=== PATIENT | female | born 1950 | race Caucasian/White ===

== ENCOUNTER 2022-03-13 02:40 | Inpatient (IN) | payer OTHER ==
[2022-03-13] MEDS ORDERED: MORPHINE 4 MG/ML SYR ONE ×2 (02:53→03:58)
[2022-03-13] MEDS ORDERED: NA CHLORIDE 0.9% 500 ML ONE (02:53)
[2022-03-13] MEDS ORDERED: ONDANSETRON 4 MG/2 ML VIAL ONE ×2 (02:53→11:18)
--- OUTSIDE RECORDS SUMMARY | 2022-03-13 04:16 | XMS REPORT | Continuity of Care Document ---
:1950 Author Organization [facility] t Address [address] [place] [address] [place] [address] Care Team Providers Name Role Phone QUINTON COOPER Primary Care Physician Unavailable Quinton Cooper Attending Clinician Unavailable Yanely [place] MA Attending Clinician Unavailable Jaclyn RAHMAN, Cruz Das Attending Clinician Sarina Alejandra Attending Clinician Pob, [facility] Main Attending Clinician Unavailable Scott Colbert MD Attending Clinician SCOTT COLBERT Attending Clinician Unavailable Michelle Brunner Attending Clinician Doctor Unassigned, [place] Attending Clinician Unavailable Mikey Jacobs MD Attending Clinician SCOTT COLBERT Admitting Clinician Unavailable Payers Payer Name Policy Type Policy Number Effective Date Expiration Date S ource Problems Condition Condition Condition Status Onset Resolution Last Treating Co mments Source Name Details Category Date Date Treatment Clinician Date Morbid Morbid Disease Active Methodi obesity obesity 08-21 st 00:00: Hospita 00 l Allergies, Adverse Reactions, Alerts Allergy Allergy Status Severity Reaction(s) Onset Inactive Treating Comm ents Source Name Type Date Date Clinician Codeine Propensi Active Rash Methodi ty to 05-19 st adverse 00:00: Hospita reaction 00 l s to drug Penicill Propensi Active Rash Method i ins ty to 05-19 adverse 00:00: Hospita reaction 00 l s to drug CODEINE DRUG Active Low Rash 2018-0 Univers INGREDI 3-26 ity of 00:00: [place] 00 Medical Branch Codeine Propensi Active Rash 2018-0 Univers ty to 3-26 ity of adverse 00:00: [place] reaction 00 Medical s Branch PENICILL Drug Active Rash 2016-02 Univers INS Class 2-21 ity of 00:00: [place] 00 Medical Branch Penicill Propensi Active Rash 2016-02 Univer s ins ty to 2-21 ity of adverse 00:00: [place] reaction 00 [facility] s Branch Family History Family Member Diagnosis Comments Start Date Stop Date Source Maternal grandmother Diabetes [facility] Natural mother [facility] Natural mother Hypertension [facility] Paternal grandfather Cancer [facility] Natural father [facility] Social History Social Habit Start Date Stop Date Quantity Comments Source Exposure to Not sure University SARS-CoV-2 (event) [facility] Sex Assigned At [facility] [place] [facility] History of tobacco Current smoker [facility] use Hospital History SDWI [facility] Std Drinks Hospit al History SDWI [facility] Binge [facility] Alcohol intake 2021-11-08 2021-11-08 Lifetime [facility] 00:00:00 00:00:00 non-drinker Hospital (finding) History SDOH 2019-03-09 2019-03-09 1 [facility] Alcohol Frequency 00:00:00 00:00:00 Hospita l Cigarettes smoked 2018-08-10 2018-08-[address] current (pack per 00:00:00 00:00:00 Hospita l day) - Reported Cigarette 2018-08-10 2018-08-10 [facility] pack-years 00:00:00 00:00:00 Hospital Tobacco use and 2018-08-10 2018-08-10 Smokeless [facility] exposure 00:00:00 00:00:00 tobacco non-user Hospital Smoking Status Start Date Stop Date Source Former smoker 2018-07-15 00:00:00 2018-07-15 00:00:00 [facility] Medications Ordered Filled Start Stop Current Ordering Indication Dosage Frequency Signature Comments Components Source Medication Medication Date Date Medication? Clinician (SIG) Name Name ergocalcife Yes 40186S Q30D Take Meth martha rol -14 50,000 [address] (VITAMIN 11:30: Units by Hospi ta D2) 50,000 45 mouth l unit every 30 capsule (thirty) days. calcium 2020-0 Yes 1{tbl} QD Take 1 Method i carbonate/v 1-[address] itamin D3 11:30: mouth Hospita (CALCIUM 45 daily. l 500 + D ORAL) CYANOCOBALA 2020-0 Yes 1{tbl} QD Take 1 Me thodi MIN, 1-[address] VITAMIN 11:30: mouth Hospita B-12, ORAL 45 daily. l multivit-mi 2020-0 Yes 2{tbl} QD Take 2 Me thodi n/iron/foli 1-[address] c/lutein 11:30: mouth Hospita (CENTRUM 45 daily. l SILVER WOMEN ORAL) diclofenac 2018-0 Yes 75mg Take 1 Unive rs 75 mg EC 8-15 tablet by ity of tablet 00:00: mouth 2 (two) Medical times Branch daily with meals. diclofenac 2018-0 Yes 75mg Take 1 Unive rs 75 mg EC 8-15 tablet by ity of tablet 00:00: mouth 2 (two) Medical times Branch daily with meals. diclofenac 2019-0 Yes 75mg Take 1 Unive rs 75 mg EC 8-15 tablet by ity of tablet 00:00: mouth 2 (two) Medical times Branch daily with meals. diclofenac 2019-0 Yes 75mg Take 1 Unive rs 75 mg EC 8-15 tablet by ity of tablet 00:00: mouth 2 (two) Medical times Branch daily with meals. diclofenac 2018-0 Yes 75mg Take 1 Unive rs 75 mg EC 8-15 tablet by ity of tablet 00:00: mouth 2 (two) Medical times Branch daily with meals. omeprazole 2018-0 Yes [id number] TAKE ONE Methodi (PriLOSEC) 7-[address] 40 MG 00:00: MOUTH Hospita capsule 00 EVERY DAY l 30 MINUTES BEFORE BREAKFAST levothyroxi 2018-0 Yes Take by Uni vers ne sodium 5-22 mouth. ity of (LEVOTHYROX 19:00: [place] INE ORAL) 11 Medical Branch levothyroxi 2018-0 Yes Take by Uni vers ne sodium 5-22 mouth. ity of (LEVOTHYROX 19:00: [place] INE ORAL) 11 Medical Branch levothyroxi 2018- Yes Take by Uni vers ne sodium 5-22 mouth. ity of (LEVOTHYROX 19:00: [place] INE ORAL) 11 Medical Branch levothyroxi Yes Take by Uni vers ne sodium 5-22 mouth. ity of (LEVOTHYROX 19:00: [place] INE ORAL) 11 Medical Branch levothyroxi Yes Take by Uni vers ne sodium 5-22 mouth. ity of (LEVOTHYROX 19:00: [place] INE ORAL) 11 Medical Branch levothyroxi Yes Take by Uni vers ne sodium 5-22 mouth. ity of (LEVOTHYROX 19:00: [place] INE ORAL) 11 Medical Branch ALPRAZolam Yes .25mg Q24H Take 0.25 M ethodi (XANAX) 5-[address] 0.25 MG 00:00: mouth Hospita tablet 00 daily as l needed for anxiety. diclofenac Yes TAKE 1 Unive rs 75 mg EC 3-21 TABLET BY ity of tablet 00:00: MOUTH [place] 00 TWICE A Medical DAY WITH Branch MEALS diclofenac Yes TAKE 1 Unive rs 75 mg EC 3-21 TABLET BY ity of tablet 00:00: MOUTH [place] 00 TWICE A Medical DAY WITH Branch MEALS diclofenac Yes TAKE 1 Unive rs 75 mg EC 3-21 TABLET BY ity of tablet 00:00: MOUTH [place] 00 TWICE A Medical DAY WITH Branch MEALS diclofenac Yes TAKE 1 Unive rs 75 mg EC 3-21 TABLET BY ity of tablet 00:00: MOUTH [place] 00 TWICE A Medical DAY WITH Branch MEALS diclofenac Yes TAKE 1 Unive rs 75 mg EC 3-21 TABLET BY ity of tablet 00:00: MOUTH [place] 00 TWICE A Medical DAY WITH Branch MEALS diclofenac Yes TAKE 1 Unive rs 75 mg EC 3-21 TABLET BY ity of tablet 00:00: MOUTH [place] 00 TWICE A Medical DAY WITH Branch MEALS traMADOL 50 2016-02 Yes TAKE 1 Univ ers mg tablet 2-02 TABLET BY ity o f 00:00: MOUTH 3 [place] 00 TIMES A Medical DAY Branch NEEDED FOR PAIN traMADOL 50 2016-02 Yes TAKE 1 Univ ers mg tablet 2-02 TABLET BY ity o f 00:00: MOUTH 3 [place] 00 TIMES A Medical DAY Branch NEEDED FOR PAIN traMADOL 50 2016-02 Yes TAKE 1 Univ ers mg tablet 2-02 TABLET BY ity o f 00:00: MOUTH 3 [place] 00 TIMES A Medical DAY Branch NEEDED FOR PAIN traMADOL 50 2016-02 Yes TAKE 1 Univ ers mg tablet 2-02 TABLET BY ity o f 00:00: MOUTH 3 TIMES A Medical DAY Branch NEEDED FOR PAIN traMADOL 50 2016-02 Yes TAKE 1 Univ ers mg tablet 2-02 TABLET BY ity o f 00:00: MOUTH 3 TIMES A Medical DAY Branch NEEDED FOR PAIN traMADOL 50 2016-02 Yes TAKE 1 Univ ers mg tablet 2-02 TABLET BY ity o f 00:00: MOUTH 3 TIMES A Medical DAY Branch NEEDED FOR PAIN VITAMIN D2 2016-02 Yes TAKE 1 Unive rs 50,000 unit 1-17 CAPSULE BY it y of capsule 00:00: MOUTH ONCE [place] 00 A WEEK Medical TAKE ONCE Branch A WEEK FOR 4 WEEKS AND THEN TAKE ONCE A MONTH VITAMIN D2 2016-02 Yes TAKE 1 Unive rs 50,000 unit 1-17 CAPSULE BY it y of capsule 00:00: MOUTH ONCE [place] 00 A WEEK Medical TAKE ONCE Branch A WEEK FOR 4 WEEKS AND THEN TAKE ONCE A MONTH VITAMIN D2 2016-02 Yes TAKE 1 Unive rs 50,000 unit 1-17 CAPSULE BY it y of capsule 00:00: MOUTH ONCE [place] 00 A WEEK Medical TAKE ONCE Branch A WEEK FOR 4 WEEKS AND THEN TAKE ONCE A MONTH VITAMIN D2 2016-02 Yes TAKE 1 Unive rs 50,000 unit 1-17 CAPSULE BY it y of capsule 00:00: MOUTH ONCE [place] 00 A WEEK Medical TAKE ONCE Branch A WEEK FOR 4 WEEKS AND THEN TAKE ONCE A MONTH VITAMIN D2 2016-02 Yes TAKE 1 Unive rs 50,000 unit 1-17 CAPSULE BY it y of capsule 00:00: MOUTH ONCE [place] 00 A WEEK Medical TAKE ONCE Branch A WEEK FOR 4 WEEKS AND THEN TAKE ONCE A MONTH VITAMIN D2 2016-02 Yes TAKE 1 Unive rs 50,000 unit 1-17 CAPSULE BY it y of capsule 00:00: M[place]TH ONCE [place] 00 A WEEK Medical TAKE ONCE Branch A WEEK FOR 4 WEEKS AND THEN TAKE ONCE A MONTH hydroCHLORO 2016-02 Yes TAKE 1 Univ ers thiazide 25 1-15 TABLET BY ity of mg tablet 00:00: MOUTH ONCE [place] 00 A DAY TAKE Medical 1 TABLET Branch ONCE A DAY FOR 90 DAYS hydroCHLORO 2016-02 Yes TAKE 1 Univ ers thiazide 25 1-15 TABLET BY ity of mg tablet 00:00: MOUTH ONCE [place] 00 A DAY TAKE Medical 1 TABLET Branch ONCE A DAY FOR 90 DAYS hydroCHLORO 2016-02 Yes TAKE 1 Univ ers thiazide 25 1-15 TABLET BY ity of mg tablet 00:00: MOUTH ONCE [place] 00 A DAY TAKE Medical 1 TABLET Branch ONCE A DAY FOR 90 DAYS hydroCHLORO 2016-02 Yes TAKE 1 Univ ers thiazide 25 1-15 TABLET BY ity of mg tablet 00:00: MOUTH ONCE [place] 00 A DAY TAKE Medical 1 TABLET Branch ONCE A DAY FOR 90 DAYS hydroCHLORO 2016-02 Yes TAKE 1 Univ ers thiazide 25 1-15 TABLET BY ity of mg tablet 00:00: MOUTH ONCE [place] 00 A DAY TAKE Medical 1 TABLET Branch ONCE A DAY FOR 90 DAYS hydroCHLORO 2016-02 Yes TAKE 1 Univ ers thiazide 25 1-15 TABLET BY ity of mg tablet 00:00: MOUTH ONCE [place] 00 A DAY TAKE Medical 1 TABLET Branch ONCE A DAY FOR 90 DAYS losartan 2016-02 Yes 1 TAB(S) Unive rs 100 mg 1-11 ONCE A DAY ity of tablet 00:00: [place]ALLY [place] [facility] losartan 2017 Yes 1 TAB(S) Unive rs 100 mg 1-11 ONCE A DAY ity of tablet 00:00: ORALLY [place] [facility] losartan 2017 Yes 1 TAB(S) Unive rs 100 mg 1-11 ONCE A DAY ity of tablet 00:00: ORALLY [place] [facility] losartan 2017 Yes 1 TAB(S) Unive rs 100 mg 1-11 ONCE A DAY ity of tablet 00:00: [facility] losartan 2017 Yes 1 TAB(S) Unive rs 100 mg 1-11 ONCE A DAY ity of tablet 00:00: ORALLY [place] [facility] losartan 2017 Yes 1 TAB(S) Unive rs 100 mg 1-11 ONCE A DAY ity of tablet 00:00: ORALLY [place] [facility] omeprazole 2016-02 Yes TAKE ONE Uni vers 40 mg 0-24 CAPSULE BY ity of capsule 00:00: MOUTH [place] EVERY DAY Medical 30 MINUTES Branch BEFORE BREAKFAST omeprazole 2016-02 Yes TAKE ONE Uni vers 40 mg 0-24 CAPSULE BY ity of capsule 00:00: MOUTH [place] EVERY DAY Medical 30 MINUTES Branch BEFORE BREAKFAST omeprazole 2016-02 Yes TAKE ONE Uni vers 40 mg 0-24 CAPSULE BY ity of capsule 00:00: MOUTH EVERY DAY Medical 30 MINUTES Branch BEFORE BREAKFAST omeprazole 2016-02 Yes TAKE ONE Uni vers 40 mg 0-24 CAPSULE BY ity of capsule 00:00: MOUTH EVERY DAY Medical 30 MINUTES Branch BEFORE BREAKFAST omeprazole 2016-02 Yes TAKE ONE Uni vers 40 mg 0-24 CAPSULE BY ity of capsule 00:00: MOUTH [place] EVERY DAY Medical 30 MINUTES Branch BEFORE BREAKFAST omeprazole 2016-02 Yes TAKE ONE Uni vers 40 mg 0-24 CAPSULE BY ity of capsule 00:00: MOUTH [place] EVERY DAY Medical 30 MINUTES Branch BEFORE BREAKFAST metformin 2016-02 Yes TAKE 2 Univer s ER 500 mg 0-20 TABLETS BY ity of 24 hr 00:00: MOUTH IN [place] tablet 00 THE Medical MORNING Branch AND 3 TABLETS BY MOUTH AT BEDTIME metformin 2016-02 Yes TAKE 2 Univer s ER 500 mg 0-20 TABLETS BY ity of 24 hr 00:00: MOUTH IN [place] tablet 00 THE Medical MORNING Branch AND 3 TABLETS BY MOUTH AT BEDTIME metformin 2016-02 Yes TAKE 2 Univer s ER 500 mg 0-20 TABLETS BY ity of 24 hr 00:00: MOUTH IN [place] tablet 00 THE Medical MORNING Branch AND 3 TABLETS BY MOUTH AT BEDTIME metformin 2016-02 Yes TAKE 2 Univer s ER 500 mg 0-20 TABLETS BY ity of 24 hr 00:00: MOUTH IN [place] tablet 00 THE Medical MORNING Branch AND 3 TABLETS BY MOUTH AT BEDTIME metformin 2016-02 Yes TAKE 2 Univer s ER 500 mg 0-20 TABLETS BY ity of 24 hr 00:00: MOUTH IN [place] tablet 00 THE Medical MORNING Branch AND 3 TABLETS BY MOUTH AT BEDTIME metformin 2016-02 Yes TAKE 2 Univer s ER 500 mg 0-20 TABLETS BY ity of 24 hr 00:00: MOUTH IN [place] tablet 00 THE Medical MORNING Branch AND 3 TABLETS BY MOUTH AT BEDTIME ARMOUR 2016-02 Yes 60mg Take 60 mg Unive rs THYROID 60 0-13 by mouth ity o f mg tablet 00:00: daily. [place] [facility] WHEELER 2016-02 Yes 60mg Take 60 mg Unive rs THYROID 60 0-13 by mouth ity o f mg tablet 00:00: daily. [place] [facility] WHEELER 2016-02 Yes 60mg Take 60 mg Unive rs THYROID 60 0-13 by mouth ity o f mg tablet 00:00: daily. [facility] 2016-02 Yes 60mg Take 60 mg Unive rs THYROID 60 0-13 by mouth ity o f mg tablet 00:00: daily. [facility] 2016-02 Yes 60mg Take 60 mg Unive rs THYROID 60 0-13 by mouth ity o f mg tablet 00:00: daily. [facility] 2016-02 Yes 60mg Take 60 mg Unive rs THYROID 60 0-13 by mouth ity o f mg tablet 00:00: daily. [facility] amLODIPine 2016-02 Yes TAKE 1/2 Uni vers 10 mg 0-12 TABLET BY ity of tablet 00:00: MOUTH ONCE [facility] amLODIPine 2016-02 Yes TAKE 1/2 Uni vers 10 mg 0-12 TABLET BY ity of tablet 00:00: MOUTH ONCE [facility] amLODIPine 2016-02 Yes TAKE 1/2 Uni vers 10 mg 0-12 TABLET BY ity of tablet 00:00: MOUTH ONCE [facility] amLODIPine 2016-02 Yes TAKE 1/2 Uni vers 10 mg 0-12 TABLET BY ity of tablet 00:00: MOUTH ONCE [facility] amLODIPine 2016-02 Yes TAKE 1/2 Uni vers 10 mg 0-12 TABLET BY ity of tablet 00:00: MOUTH ONCE [facility] amLODIPine 2016-02 Yes TAKE 1/2 Uni vers 10 mg 0-12 TABLET BY ity of tablet 00:00: MOUTH ONCE [facility] Immunizations Ordered Immunization Filled Immunization Date Status Commen ts Source Name Name PFIZER COVID-19 MRNA 2020-04-12 Completed Meth odist VACCINATION 00:00:00 [facility] PFIZER COVID-19 MRNA 2020-03-22 Completed Meth odist VACCINATION 00:00:00 Hospital Influenza, 2017-12-08 Completed [facility] Unspecified 00:00:00 Hospital Vital Signs Vital Name Observation Time Observation Value Comments Source Body height 2021-11-08 15:43:00 152.4 cm [facility] Body weight 2021-11-08 15:43:00 106.142 kg [facility] BMI 2021-11-08 15:43:00 45.70 kg/m2 [facility] Procedures Procedure Date / Time Performing Clinician Source Performed XR KNEE AP STANDING 2021-11-08 16:52:29 Cruz Frost [facility] BILATERAL XR KNEE 1 OR 2 VW RIGHT 2021-11-08 16:43:02 Cruz Frost [facility] XR KNEE 1 OR 2 VW RIGHT 2021-11-08 16:01:15 Cruz Frost [facility] XR KNEE AP STANDING 2021-11-08 16:00:58 Cruz Frost [facility] BILATERAL PROTHROMBIN TIME / INR 2019-07-12 19:51:00 Scott Colbert [facility] ACTIVATED PARTIAL 2019-07-12 19:51:00 Scott Colbert [facility] THRMPLAS [facility] HEPATIC FUNCTION PANEL 2019-07-12 19:51:00 Scott Colbert [facility] ([id number]) [facility],BU/BC,ALT,AST,ALK PHOS) CBC WITH DIFFERENTIAL 2019-07-12 19:51:00 Scott Colbert [facility] US ABDOMEN COMPLETE 2019-07-07 14:27:02 Scott Colbert [facility] PHYSICIAN ORDERS 2019-07-07 05:01:00 Doctor Unassigned, [facility] Name [facility] MEDICATION CORRESPONDENCE 2018-10-30 05:01:00 Doctor Unassigned, [facility] Name [facility] MEDICATION CORRESPONDENCE 2018-09-29 05:01:00 Doctor Unassigned, [facility] Plan of Care Planned Activity Planned Date Details Comments Source Future Scheduled 2022-02-09 Hepatitis C screening [facility] Test 21:04:48 (procedure) [code = 073642839] Future Scheduled 2022-02-09 BREAST CANCER [facility] Test 21:04:48 SCREENING [code = BREAST CANCER SCREENING] Future Scheduled 2022-02-09 COLONOSCOPY SCREENING [facility] Test 21:04:48 [code = COLONOSCOPY SCREENING] Future Scheduled 2022-02-09 SHINGLES VACCINES (2 Met [facility] Test 21:04:48 of 3) [code = SHINGLES VACCINES (2 of 3)] Future Scheduled 2022-02-09 COVID-19 VACCINE (3 - [facility] Test 21:04:48 Booster for Pfizer series) [code = COVID-19 VACCINE (3 - Booster for Pfizer series)] Future Scheduled 2022-02-09 INFLUENZA VACCINE Method [facility] Test 21:04:48 [code = INFLUENZA VACCINE] Encounters Start End Encounter Admission Attending Care Care Encounter Source Date/Time Date/Time Type Type Clinicians Facility Department ID 2022-02-27 Outpatient [facility] Common 14:04:02 0104 [facility] 2021-08-21 Outpatient Allison, [facility] [id number] Common 08:44:05 Vinitha 06 [facility] 2021-06-07 Outpatient [facility] [id number] Common 09:07:03 0414 [facility] 2021-11-19 2021-11-19 Telephone [place], 1.2.840.1 [id number] Methodi 00:00:00 00:00:[address] 3.430.2.7 Hospit a .3.662796 l .8 2021-11-08 2021-11-08 Office Cruz Frost 1.2.840.1 [id number] Methodi 10:50:00 11:12:36 [place].1.[address] 3.430.2.7 Hospit a .3.508263 l .8 2021-11-08 2021-11-08 Outpatient CRUZ FROST [facility] [id number] [place] 00:00:00 00:00:00 912 Method i 2021-11-08 2021-11-08 Outpatient [facility] [id number] [place] 00:00:00 00:00:00 930 Method i 2021-11-08 2021-11-08 Travel 1.2.840.1 1.2.949.351 [id number] Methodi 00:00:00 00:00:[address] 3.430.2.7 0.2.7.3.698 Ho spita .3.501723 084.8 l .8 2021-11-08 2021-11-08 Outpatient FROST, CRUZ [facility] [id number] [place] 00:00:00 00:00:[address] 2021-11-08 2021-11-08 Outpatient FROST, CRUZ [facility] [id number] [place] 00:00:00 00:00:[address] 2021-11-08 2021-11-08 Outpatient FROST, CRUZ [facility] [id number] [place] 00:00:00 00:00:[address] 2021-10-02 2021-10-02 Travel 1.2.840.1 1.2.306.157 [id number] Methodi 00:00:00 00:00:[address] 3.430.2.7 0.2.7.3.698 Ho spita .3.736790 084.8 l .8 2021-04-16 2021-04-16 Telephone Chen, 1.2.840.1 [id number] Methodi 00:00:00 00:00:00 Sar[address] Y[address] 19835.1.[address] 3.430.2.7 Hospit a .3.971561 l .8 2020-05-03 2020-05-03 Outpatient FROST, CRUZ [facility] [id number] [place] 00:00:00 00:00:[address] 2020-05-03 2020-05-03 Outpatient FROST, CRUZ [facility] [id number] [place] 00:00:00 00:00:[address] 2020-05-03 2020-05-03 Outpatient FROST, CRUZ [facility] [id number] [place] 00:00:00 00:00:[address] 2020-04-12 2020-04-12 Outpatient [facility] [id number] [place] 00:00:00 00:00:[address] 2020-03-22 2020-03-22 Outpatient [facility] [id number] [place] 00:00:00 00:00:[address] 2019-07-12 2019-07-12 Music Director Benjamin Muniz [facility] [[email or web address]] 1.2.840.114 [id number] 14:41:18 14:56:18 Visit Lab Main [place] 350.1.13.10 [place] 4.2.7.2.686 Professio [phone] [address] 2019-07-12 2019-07-12 Music Director Cristy, Benjamin Lab Main [facility] [[email or web address]] 1.2.[id number] [facility] 14:41:18 14:56:18 Visit Scott Colbert 350.1.13.10 ity [facility] 4.[place].7.2.[place] [phone] Ar dical [address] 2019-07-12 2019-07-12 [facility] [id number] Univers 09:45:00 09:45:00 [facility] 2019-07-07 2019-07-07 [facility] [id number] Univers 07:58:54 23:59:00 [facility] 2019-07-07 2019-07-07 [facility] 1.2.840.114 [id number] 07:58:00 23:59:00 Encounter Scott Shea 350.1.13.10 [place] 4.2.7.2.686 [place] [id number] [facility] 2019-07-07 2019-07-07 [facility] 1.2.840.114 [id number] Univers 07:58:00 23:59:00 Encounter Scott Shea 350.1.13.10 ity [facility] 4[place]2.7.2.686 [place] [id number] [address] 2019-07-07 2019-07-07 Music Director Cristy, [facility] 1.2.840.114 [id number] 08:06:30 08:21:30 Visit Lab Main [place] 350.1.13.10 [place] 4.2.7.2.686 Professio [id number] [address] 2019-07-07 2019-07-07 Music Director Cristy, Adc Lab Main [facility] [[email or web address]] 1.2.8 40.[id number] [facility] 08:06:30 08:21:30 Visit Michelle Patrick 350.1.13.10 ity [place] 4[place].2.[place] Profess[place] [phone] Ar dical nal 353 [facility] 2018-10-30 2018-10-30 Orders Doctor TORREY 1.2.840.114 [id number] 00:00:00 00:00:00 Only Unassigned, MYCHAL 350.1.13.10 [place] [facility] 4.2.7.2.686 [id number] 2018-10-30 2018-10-30 Orders Doctor TORREY 1.2.840.114 [id number] Univers 00:00:00 00:00:00 Only Unassigned, MYCHAL 350.1.13.10 ity of [place] [facility] 4.2.7.2.686 Fac[place] as [phone] [address] 2018-10-08 2018-10-08 Telephone [facility] 1.2.840.114 [id number] 00:00:00 00:00:00 Mikey L Health 350.1.13.10 Surgical 4.2.7.2.686 Specialti [phone] [address] 2018-10-08 2018-10-08 Telephone [facility] 1.2.840.114 [id number] Univers 00:00:00 00:00:00 Mikey L Health 350.1.13.10 it y of Surgical 4.2.7.2.686 [place] as Specialti [phone] Ar dical es 198 [facility] 2018-09-29 2018-09-29 Orders Doctor HIRSCH 1.2.840.114 [id number] 00:00:00 00:00:00 Only Unassigned, MYCHAL 350.1.13.10 [place] [facility] 4.2.7.2.686 [id number] 2018-09-29 2018-09-29 Orders Doctor HIRSCH 1.2.840.114 [id number] Univers 00:00:00 00:00:00 Only Unassigned, MYCHAL 350.1.13.10 ity of [place] [facility] 4.2.7.2.686 Facundo as [phone] [address] Results Test Description Test Time Test Comments Results Result Comments Source HEPATIC FUNCTION PANEL ([id number]) (ALB,T.PRO,BILI 2019-07-12 21 :01:00 T,BU/BC,ALT,AST,ALK PHOS) Test Item Value Reference Range Interpretation Comme nts TOTAL BILI (test code = 1609887941) 0.5 mg/dL 0.1-1.1 BILI UNCON (test code = 4854966543) 0.6 mg/dL 0.1-1.1 BILI CONJ (test code = 4029202517) 0.0 mg/dL 0-0.3 T PROTEIN (test code = 5959300189) 6.9 g/dL 6.3-8.2 ALBUMIN (test code = 7922159915) 3.8 g/dL 3.5-5 ALK PHOS (test code = 6746303665) 131 U/L 34-122 H ALTv (test code = 1742-6) 23 U/L 5-35 AST(SGOT) (test code = 4839026785) 27 U/L 13-40 Lab Interpretation (test code = 63456-5) [facility] [id number] 20:21:00 Test Item Value Reference Range Interpretation Comments PROTIME PATIENT (test See_Comment [Auto mated message] code = 5964-2) The system wh ich generated this result transmitted ref erence range: 12.0 - 1 4.7 Seconds. The re ference range was not u sed to interpret this result as normal/abnor mal. INR (test code = 6301-6) Nor mal INR <1.1; Warfarin Therap eutic range 2.0 to 3. 0 or 2.5 to 3.5, dep ending upon the indica tions. Lab Interpretation (test Normal code = 39454-3) [facility]:18[facility]00 Test Item Value Reference Range Interpretation Comments APTT Patient (test See_Comment [Automat ed code = 3173-2) message] The system which generated this result transmitted reference range : 23 - 38 Seconds . The reference range was not used to interpr et this result as normal/abnormal . MARION (test code = MARION) The [facility] [[email or web address]] patient population mean normal value for aPTT is 30 seconds. Lab Interpretation Normal (test code = 24747-8) [facility] WITH [id number] 20:17:00 Test Item Value Reference Range Interpretation Comments WBC (test code = See_Comment [Automated 8390-2) message] The sy stem which generated this result transmitted reference range : 4.30 - 11.10 10*3/?L. The reference range was not used to interpret this result as normal/abnormal . RBC (test code = See_Comment [Automated 789-8) message] The sy stem which generated this result transmitted reference range : 3.93 - 5.25 10*6/?L. The reference range was not used to interpret this result as normal/abnormal . HGB (test code = 13.2 g/dL 11.6-15 718-7) HCT (test code = 39.4 % 35.7-45.2 4544-3) MCV (test code = 90.2 fL 80.6-95.5 787-2) MCH (test code = 30.2 pg 25.9-32.8 785-6) MCHC (test code = 33.5 g/dL 31.6-35.1 786-4) RDW-SD (test code = 44.5 fL 39-49.9 26635-5) RDW-CV (test code = 13.4 % 12-15.5 788-0) PLT (test code = See_Comment H [Automated 777-3) message] The sy stem which generated this result transmitted reference range : 166 - 358 10*3/ ?L. The reference r ahsan was not used to interpret this result as normal/abnormal . MPV (test code = 9.3 fL 9.5-12.9 L 67823-2) NRBC/100 WBC (test See_Comment [Automat ed code = 2534189344) message] The system which generated this result transmitted reference range : 0.0 - 10.0 /100 WBCs. The refer ence range was not u sed to interpret th is result as normal/abnormal . NRBC x10^3 (test code <0.01 See_Comment [Auto mated = [id number]) message] The s ystem which generated this result transmitted reference range : 10*3/?L. The reference range was not used to interpret this result as normal/abnormal . GRAN MAT (NEUT) % 72.3 % (test code = 770-8) IMM GRAN % (test code 0.50 % = 1346618196) LYMPH % (test code = 19.0 % 736-9) MONO % (test code = 6.8 % 5905-5) EOS % (test code = 0.8 % 713-8) BASO % (test code = 0.6 % 706-2) GRAN MAT x10^3(ANC) 7.81 10*3/uL 1.88-7.09 H (test code = 4204564632) IMM GRAN x10^3 (test 0.05 10*3/uL 0-0.06 code = 2740366362) LYMPH x10^3 (test code 2.06 10*3/uL 1.32-3.29 = 731-0) MONO x10^3 (test code 0.74 10*3/uL 0.33-0.92 = 742-7) EOS x10^3 (test code = 0.09 10*3/uL 0.03-0.39 711-2) BASO x10^3 (test code 0.07 10*3/uL 0.01-0.07 = 704-7) Lab Interpretation Abnormal (test code = 38100-0) [facility] ABDOMEN [id number] 14:31:07HISTORY: Right upper quadrant pain. Low back pain. TECHNIQUE: Upper abdominal organs were evaluated in multiple planes withthe patient in multiple different positions, without and with colorimaging. FINDINGS: Liver is 15.8 cm, spleen is 10.3 x 2.8 cm, right kidney is 9.9 x4.0 x 5.5 cm and left kidney is 10.9 x 4.6 x 4.0 cm in size. Liverparenchyma appears slightly coarse but without any focal liver le sions. Nofocal lesions are detected in these organs. Cortex of both kidneys rangebetween 12 mm and 14 mm. No hydronephrosis, free fluid in the upper abdomenor aortic aneurysm detected. Visualized portions of the pancreas appearnormal. Hepatic and portal venous system appear patent, with hepatopetalportal flow noted. Gallbladder appears to be moderately distended with no edema or thickeningof the brock. No gallstones detected. However, small amount of biliarysludge and 1 biliary crystal visualized inthe gallbladder lumen. Commonhepatic duct is 6.7 mm. CONCLUSIONS: No gallstones. Mildly hydropic gallbladder with biliary sludgeand one small biliary Crystal visualized. Findings are nonspecific andcould be secondary to chronic acalculous cholecystitis and/ordysfunctioning gallbladder. If the patient's clinical symptoms persist andremain unexplained, nuclear hepatobiliary scan without and with CCKchallenge may be of value. [facility], Radiant Results Inft User - 07/07/2019 9:32 AM CDTHISTORY: Right upper quadrant pain. Low back pain.TECHNIQUE: Upper abdominal organs were evaluated in multiple planes withthe patient in multiple different positions, without and with colorimaging.FINDINGS: Liver is 15.8 cm, spleen is 10.3 x 2.8 cm, right kidney is 9.9 x4.0 x 5.5 cm and left kidney is 10.9 x 4.6 x 4.0 cm in size. Liverparenchyma appears slightly coarse but without any focal liver lesions. Nofocal lesions are detected in these organs. Cortex of both kidneys rangebetween 12 mm and 14 mm. No hydronephrosis,free fluid in the upper abdomenor aortic aneurysm detected. Visualized portions of the pancreas appearnormal. Hepatic and portal venous system appear patent, with hepatopetalportal flow noted.Gallbladder appears to be moderately distended with no edema or thickeningof the brock. No gallstones detected. However, small amount of biliarysludge and 1 biliary crystal visualized in the gallbladder lumen. Commonhepatic duct is 6.7 mm.CONCLUSIONS: No gallstones. Mildly hydropic gallbladder with biliary sludgeand one small biliary Crystal visualized. Findings are nonspecific andcould be secondary to chronicacalculous cholecystitis and/ordysfunctioning gallbladder. If the patient's clinical symptoms persist andremain unexplained, nuclear hepatobiliary scan without and with CCKchallenge may be of value.[facility]
[2022-03-13 05:04] LABS: Absolute Lymphocytes (CBC) 2.6 K/uL (0.7-4.9); Hematocrit 42.5 % (36.0-45.0); Lymphocytes % 24.6 % (15.3-44.8); MCV 88.2 fL (80-100); MPV 7.7 fL (7.6-11.3); RBC Red Blood Cell Count 4.82 M/uL (3.86-4.86)
[2022-03-13 05:10] LABS: Urine Blood Negative (Negative); Urine Glucose Negative (Negative); Urine Protein Negative (Negative)
[2022-03-13 05:11] LABS: Albumin 3.6 g/dL (3.4-5.0); Bilirubin Total 0.4 mg/dL (0.2-1.0); Potassium 3.9 mmol/L (3.5-5.1); Protein, Total 7.1 g/dL (6.4-8.2)
--- NOTE | 2022-03-13 05:36 | EDPHYS ---
Physician Documentation [facility] Name: Megan Wong Age: 71 yrs Sex: Female : 1950 Arrival Date: 03/13/2022 Time: 02:40 Bed 18 Private MD: ED Physician Ronny Mccracken HPI: 03/13 02:44 This Female presents to ER via Unassigned with complaints of abd pain. rn 02:44 The patient presents with abdominal pain. Onset: The symptoms/episode began/occurred 2 rn hour(s) ago. The symptoms do not radiate. Associated signs and symptoms: Pertinent positives: nausea, Pertinent negatives: blood in stools, chest pain, constipation, diarrhea, dysuria, fever. The symptoms are described as achy, crampy, sharp. Modifying factors: The symptoms are alleviated by nothing, the symptoms are aggravated by touching the area. Severity of pain: At its worst the pain was moderate in the emergency department the pain is unchanged. The patient has not experienced similar symptoms in the past. The patient has not recently seen a physician. 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 - Social history:: Smoking status: Patient denies any tobacco usage or history of. - Family history:: not pertinent. - Hospitalizations: : No recent hospitalization is reported. ROS: 02:44 Constitutional: Negative for fever, chills, and weight loss, Eyes: Negative for injury, rn pain, redness, and discharge, Neck: Negative for injury, pain, and swelling, Cardiovascular: Negative for chest pain, palpitations, and edema, Respiratory: Negative for shortness of breath, cough, wheezing, and pleuritic chest pain, Abdomen/GI: + abd pain and nausea Back: Negative for injury and pain, : Negative for injury, bleeding, discharge, and swelling, MS/Extremity: Negative for injury and deformity, Skin: Negative for injury, rash, and discoloration, Neuro: Negative for headache, weakness, numbness, tingling, and seizure. Exam: 02:44 Constitutional: This is a well developed, well nourished patient who is awake, alert, rn appears uncomfortable Head/Face: Normocephalic, atraumatic. Cardiovascular: Regular rate and rhythm. No pulse deficits. Respiratory: No increased work of breathing, no retractions or nasal flaring. Abdomen/GI: Soft, + tender suprapubic and RLQ Skin: Warm, dry with normal turgor. Normal color with no rashes, no lesions, and no evidence of cellulitis. MS/ Extremity: Pulses equal, no cyanosis. Neuro: Awake and alert, GCS 15 Vital Signs: 02:41 BP 142 / 83; Pulse 68; Resp 18; Temp 97.6(O); Pulse Ox 100% on R/A; Weight 102.06 kg ll3 (R); Height 5 ft. 0 in. (152.40 cm) (R); Pain 10/10; 03:50 BP 131 / 48; Pulse 61; Resp 17; Pulse Ox 95% ; Pain 7/10; jj7 04:30 BP 108 / 54; Pulse 62; Resp 20; Pulse Ox 97% ; jj7 05:36 BP 122 / 49; Pulse 65; Resp 18; Pulse Ox 97% ; Pain 2/10; jj7 06:36 BP 116 / 54; Pulse 63; Resp 20; Pulse Ox 98% ; Pain 7/10; jj7 02:41 Body Mass Index 43.94 (102.06 kg, 152.40 cm) ll3 MDM: 02:41 Patient medically screened. rn 05:33 Differential diagnosis: bowel obstruction, non-specific abd pain, urinary tract rn infection, ureterolithiasis, inguinal hernia, incarcerated inguinal hernia, bowel obstruction. Data reviewed: vital signs, nurses notes, lab test result(s), radiologic studies, CT scan, and as a result, I will admit patient. Counseling: I had a detailed discussion with the patient and/or guardian regarding: the historical points, exam findings, and any diagnostic results supporting the discharge/admit diagnosis, lab results, radiology results, the need for further work-up and treatment in the hospital. Response to treatment: the patient's symptoms have mildly improved after treatment, and as a result, I will admit patient. ED course: Pt with moderate sized indirect right inguinal hernia, no evidence of obstruction or perforation. Attempts made to reduce hernia after 2 doses of morphine, unsuccessful. Patient is directly tender over site of hernia. Will admit to hospitalist service for surgical consultation and pain control for possible early incarcerated right inguinal hernia.. 06:35 Management of patient was discussed with the following: Hospitalist: Discussed case and rn need for admission with hospitalist, I was told that they would contact general surgery for consultation. . 03/13 02:42 Order name: CBC with Diff rn 03/13 02:42 Order name: CMP rn 03/13 02:42 Order name: Lipase rn 03/13 02:42 Order name: Urine Microscopic Only rn 03/13 05:28 Order name: CBC with Automated Diff; Complete Time: 05:32 EDMS 03/13 05:28 Order name: Urine Dipstick-Ancillary; Complete Time: 05:32 EDMS 03/13 02:42 Order name: CT Abd/Pelvis - IV Contrast Only rn 03/13 05:28 Order name: Comprehensive Metabolic Panel; Complete Time: 05:32 EDMS 03/13 05:28 Order name: Lipase; Complete Time: 05:32 EDMS 03/13 05:28 Order name: Urine Microscopic Only; Complete Time: 05:59 EDMS 03/13 05:32 Order name: SARS RAPID; Complete Time: 05:59 rn 03/13 02:42 Order name: IV Saline Lock; Complete Time: 02:56 rn 03/13 02:42 Order name: Labs collected and sent; Complete Time: 02:59 rn 03/13 02:42 Order name: Urine Dipstick-Ancillary (obtain specimen); Complete Time: 05:09 rn 03/13 05:13 Order name: NPO; Complete Time: 07:14 rn Administered Medications: 02:55 Drug: Zofran (Ondansetron) 4 mg Route: IVP; Site: right antecubital; jj7 04:01 Follow up: Response: No adverse reaction jj7 02:55 Drug: morphine 4 mg Route: IVP; Infused Over: 4 mins; Site: right antecubital; jj7 03:05 Follow up: Response: Pain is decreased jj7 02:55 Drug: NS 0.9% 500 ml Route: IV; Rate: bolus; Site: right antecubital; jj7 03:37 Follow up: IV Status: Completed infusion j7 04:00 Drug: morphine 4 mg Route: IVP; Infused Over: 4 mins; Site: right antecubital; jj7 06:35 Drug: Dilaudid (HYDROmorphone) 0.5 mg Route: IVP; Site: right antecubital; jj7 07:11 Follow up: Response: No adverse reaction; Pain is decreased; RASS: Alert and Calm (0) ss 06:35 Drug: NS 0.9% 1000 ml Route: IV; Rate: 100 ml/hr; Site: right antecubital; jj7 07:09 Follow up: IV Status: Infusion continued upon admission 06:36 Drug: Flagyl (metroNIDAZOLE) 500 mg Volume: 100 ml; Route: IVPB; Rate: 200 ml/hr; jj7 Infused Over: 30 mins; Site: right antecubital; 07:21 Follow up: IV Status: Completed infusion; IV Intake: 100ml ss 07:21 Not Given (pT STATES SHE MAY BE ALLERGIC): Cipro (ciprofloxacin) 400 mg 200 ml IVPB ss once over 60 mins Disposition Summary: 03/13/22 05:36 Hospitalization Ordered Hospitalization Status: Observation rn Provider: Иван Mccracken [facility] Condition: Stable rn Problem: new rn Symptoms: have improved rn Bed/Room Type: Standard rn Room Assignment: 208(03/13/22 06:23) Diagnosis - Unilateral inguinal hernia, without obstruction or gangrene, not specified as rn recurrent - Incarcerated Discharge Instructions: - Discharge Summary Sheet mw2 Forms: - Medication Reconciliation Form rn - SBAR form rn Signatures: Dispatcher [employer] EDChantelle Abad RN RN Ronny Farooq MD MD rn Attema, Lee, FNP-C FNP-Ayde Yadav Lynsea, RN RN ll3 Maria C Lara, RN RN jj7 Denise Forbes RN ss Corrections: (The following items were deleted from the chart) 06:23 05:36 rn ivette
--- NOTE | 2022-03-13 05:36 | ER ---
Nurse's Notes [facility] Name: Megan Wong Age: 71 yrs Sex: Female : 1950 Arrival Date: 03/13/2022 Time: 02:40 Bed 18 Private MD: Diagnosis: Unilateral inguinal hernia, without obstruction or gangrene, not specified as recurrent-Incarcerated Presentation: 03/13 02:41 Chief complaint: EMS states: Toned out for abdominal pain, pt c/o RLQ pain 10/10 and ll3 chills, states pain started 3 hours [employer], right sided rigidity noted, states "I thought it was just gas but it hasn't got any better after taking antiacids". Coronavirus screen: Vaccine status: Patient reports receiving the 2nd dose of the covid vaccine. At this time, the client does not indicate any symptoms associated with coronavirus-19. Ebola Screen: No symptoms or risks identified at this time. Initial Sepsis Screen: Does the patient meet any 2 criteria? No. Patient's initial sepsis screen is negative. Does the patient have a suspected source of infection? No. Patient's initial sepsis screen is negative. Risk Assessment: Do you want to hurt yourself or someone else? Patient reports no desire to harm self or others. Onset of symptoms was March 12, 2022. 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 - Social history:: Smoking status: Patient denies any tobacco usage or history of. - Family history:: not pertinent. - Hospitalizations: : No recent hospitalization is reported. Screenin:45 [facility] ED Fall Risk Assessment (Adult) History of falling in the last 3 months, jj7 including since admission No falls in past 3 months (0 pts) Confusion or Disorientation No (0 pts) Intoxicated or Sedated No (0 pts) Impaired Gait No (0 pts) Mobility Assist Device Used No (0 pt) Altered Elimination No (0 pt) Score/Fall Risk Level 0 - 2 = Low Risk Oriented to surroundings, Maintained a safe environment. Abuse screen: Denies threats or abuse. Nutritional screening: No deficits noted. Tuberculosis screening: No symptoms or risk factors identified. Assessment: 02:45 General: Appears distressed, uncomfortable, Behavior is cooperative, appropriate for [facility] age. Pain: Complains of pain in right lower quadrant Pain currently is 10 out of 10 on a pain scale. 07:01 Reassessment: PT REPORT GIVEN TO EDGARDO JARAMILLO. [facility] 07:20 General: Appears in no apparent distress. comfortable, Behavior is calm, cooperative. ss Neuro: Level of Consciousness is awake, alert. Respiratory: Airway is patent Respiratory effort is even, unlabored, Respiratory pattern is regular, symmetrical. Derm: Skin is intact, is healthy with good turgor, Skin is pink, warm \\T\\ dry. normal. 07:25 Reassessment: Report given to CLINT Guzman. When attempting to administer Cipro, patient ss stated, "I think I may be allergic to that one too. I'm not sure, but I think I am." CLINT Guzman notified and states that she will call Dr. Mccracken and notify him of possible allergies. Will not administer Cipro at this time. Vital Signs: 02:41 BP 142 / 83; Pulse 68; Resp 18; Temp 97.6(O); Pulse Ox 100% on R/A; Weight 102.06 kg ll3 (R); Height 5 ft. 0 in. (152.40 cm) (R); Pain 10/10; 03:50 BP 131 / 48; Pulse 61; Resp 17; Pulse Ox 95% ; Pain 7; jj7 04:30 BP 108 / 54; Pulse 62; Resp 20; Pulse Ox 97% ; jj7 05:36 BP 122 / 49; Pulse 65; Resp 18; Pulse Ox 97% ; Pain 2/10; jj7 06:36 BP 116 / 54; Pulse 63; Resp 20; Pulse Ox 98% ; Pain 7/10; jj7 02:41 Body Mass Index 43.94 (102.06 kg, 152.40 cm) ll3 ED Course: 02:40 Patient arrived in ED. ja2 02:41 Ronny Mccracken MD is Attending Physician. rn 02:44 Maria C Lara RN is Primary Nurse. jj7 02:45 Triage completed. ll3 02:45 Arm band placed on Patient placed in an exam room, on a stretcher, on pulse oximetry. ll3 02:45 Patient has correct armband on for positive identification. Bed in low position. Call jj7 light in reach. Side rails up X2. Warm blanket given. 02:59 Inserted saline lock: 20 gauge in right antecubital area, using aseptic technique. oe Blood collected. 05:36 Иван Mccracken MD is Hospitalizing Provider. rn 05:36 SARS RAPID Sent. jj7 07:21 No provider procedures requiring assistance completed. Patient admitted, IV remains in ss place. Administered Medications: 02:55 Drug: Zofran (Ondansetron) 4 mg Route: IVP; Site: right antecubital; jj7 04:01 Follow up: Response: No adverse reaction jj7 02:55 Drug: morphine 4 mg Route: IVP; Infused Over: 4 mins; Site: right antecubital; jj7 03:05 Follow up: Response: Pain is decreased jj7 02:55 Drug: NS 0.9% 500 ml Route: IV; Rate: bolus; Site: right antecubital; jj7 03:37 Follow up: IV Status: Completed infusion jj7 04:00 Drug: morphine 4 mg Route: IVP; Infused Over: 4 mins; Site: right antecubital; jj7 06:35 Drug: Dilaudid (HYDROmorphone) 0.5 mg Route: IVP; Site: right antecubital; jj7 07:11 Follow up: Response: No adverse reaction; Pain is decreased; RASS: Alert and Calm (0) 06:35 Drug: NS 0.9% 1000 ml Route: IV; Rate: 100 ml/hr; Site: right antecubital; jj7 07:09 Follow up: IV Status: Infusion continued upon admission 06:36 Drug: Flagyl (metroNIDAZOLE) 500 mg Volume: 100 ml; Route: IVPB; Rate: 200 ml/hr; jj7 Infused Over: 30 mins; Site: right antecubital; 07:21 Follow up: IV Status: Completed infusion; IV Intake: 100ml ss 07:21 Not Given (pT STATES SHE MAY BE ALLERGIC): Cipro (ciprofloxacin) 400 mg 200 ml IVPB ss once over 60 mins Medication: 02:45 VIS not applicable for this client. jj7 Intake: 07:21 IV: 100ml; Total: 100ml. ss Outcome: 05:36 Decision to Hospitalize by Provider. rn 07:22 Admitted to Med/surg accompanied by tech, family with patient, via stretcher. ss 07:22 Condition: good 07:22 Instructed on the need for admit, Demonstrated understanding of instructions. 07:28 Patient left the ED. Signatures: Ronny Mccracken MD MD rn Smirch, Shelby, RN RN Demarcus Her Jessica ja2 Loubet, Lynsea, RN RN ll3 Maria C Lara RN RN jj7
[2022-03-13 05:38] LABS: Urine Bacteria None Seen /HPF (<20); Urine RBC None Seen /HPF (None Seen)
[2022-03-13 05:55] LABS: SARS-CoV-2 Antigen Rapid Res Negative (Negative)
[2022-03-13] MEDS ORDERED: NA CHLORIDE 0.9% 1,000 ML ONE (06:16)
[2022-03-13] MEDS ORDERED: METRONIDAZOLE 500mg IVPB 500 MG/100 ML BAG IV ONE (06:16)
[2022-03-13] MEDS ORDERED: HYDROMORPHONE HCL 0.5 MG/0.5 ML INJ ONE (06:16)
[2022-03-13] MEDS ORDERED: CIPROFLOXACIN 400mg IV 400 MG/200 ML BAG IV ONE (06:16)
[2022-03-13] MEDS ORDERED: NA CHLORIDE 0.9% 0 ML IV ONE (06:17)
--- NOTE | 2022-03-13 06:17 | P.HP ---
Certification for Inpatient Patient admitted to: Inpatient With expected LOS: >2 Midnights Patient will require the following post-hospital care: None Practitioner: I am a practitioner with admitting privileges, knowledge of patient current condition, hospital course, and medical plan of care. Services: Services provided to patient in accordance with Admission requirements found in Title 42 Section 412.3 of the Code of Federal Regulations <Neftali Landeros Wilder Barajas - Last Filed: 03/13/22 06:15> Patient History Date of Service: 03/13/22 Reason for admission: Incarcerated hernia History of Present Illness: 71-year-old female with history of hypertension, hypothyroidism, GERD presents the emergency department with severe right lower quadrant pain that began melanite last night. She denies previous episodes in the past, he was evaluated in the emergency department found to be significant tender in the right lower quadrant labs were significant for white blood cell count of 10.6 CT abdomen pelvis IV contrast was performed which revealed a large indirect right inguinal hernia containing loop of proximal ascending colon and small amount of free fluid. There is no evidence of proximal bowel obstruction, colonic wall thickening or free air. ED provider attempted to reduce hernia without success, patient with significant pain still to the right lower quadrant which is acute in nature. ED read wishes to admit for further evaluation and management of suspected incarcerated hernia. - Past Medical/Surgical History -: Hypertension -: Hypothyroidism -: GERD -: Gastric bypass -: Cholecystectomy Psychosocial/ Personal History: Patient was at home with her son - Family History Family History: Reviewed- Non-Contributory - Social History Smoking Status: Never smoker Alcohol use: No CD- Drugs: No Caffeine use: Yes Place of Residence: Home <JarrellNeftali morales - Last Filed: 03/13/22 06:15> Date of Service: 03/13/22 <Иван Mccracken - Last Filed: 03/13/22 21:19> Review of Systems 10-point ROS is otherwise unremarkable Gastrointestinal: Abdominal Pain <Neftali Landeros - Last Filed: 03/13/22 06:15> Physical Examination - Physical Exam General: Alert, In no apparent distress, Oriented x3 HEENT: Atraumatic, PERRLA, Mucous membr. moist/pink, EOMI, Sclerae nonicteric Neck: Supple, 2+ carotid pulse no bruit, No LAD, Without JVD or thyroid abnormality Respiratory: Clear to auscultation bilaterally, Normal air movement Cardiovascular: Regular rate/rhythm, Normal S1 S2 Capillary refill: <2 Seconds Gastrointestinal: Normal bowel sounds, Tenderness (Moderate right lower quadrant tenderness) Musculoskeletal: No tenderness Integumentary: No rashes Neurological: Normal speech, Normal strength at 5/5 x4 extr, Normal tone, Normal affect - Studies Laboratory Data (last 24 hrs) 03/13/22 02:54: Sodium 136, Potassium 3.9, BUN 13, Creatinine 0.82, Glucose 142 H, Total Bilirubin 0.4, AST 21, ALT 27, Alkaline Phosphatase 70, Lipase 160 03/13/22 02:54: WBC 10.60, Hgb 14.4, Hct 42.5, Plt Count 360 03/13/22 02:42: Sodium Cancelled, Potassium Cancelled, BUN Cancelled, Creatinine Cancelled, Glucose Cancelled, Total Bilirubin Cancelled, AST Cancelled, ALT Cancelled, Alkaline Phosphatase Cancelled, Lipase Cancelled 03/13/22 02:42: WBC Cancelled, Hgb Cancelled, Hct Cancelled, Plt Count Cancelled <Neftali Landeros - Last Filed: 03/13/22 06:15> - Studies Laboratory Data (last 24 hrs) 03/13/22 02:54: Sodium 136, Potassium 3.9, BUN 13, Creatinine 0.82, Glucose 142 H, Total Bilirubin 0.4, AST 21, ALT 27, Alkaline Phosphatase 70, Lipase 160 03/13/22 02:54: WBC 10.60, Hgb 14.4, Hct 42.5, Plt Count 360 03/13/22 02:42: Sodium Cancelled, Potassium Cancelled, BUN Cancelled, Creatinine Cancelled, Glucose Cancelled, Total Bilirubin Cancelled, AST Cancelled, ALT Cancelled, Alkaline Phosphatase Cancelled, Lipase Cancelled 03/13/22 02:42: WBC Cancelled, Hgb Cancelled, Hct Cancelled, Plt Count Cancelled <Иван Mccracken - Last Filed: 03/13/22 21:19> Assessment and Plan - Plan Assessment: Suspected incarcerated hernia-large indirect right inguinal hernia Hypertension Hypothyroidism GERD Plan: Suspected incarcerated hernia-large indirect right inguinal hernia N.p.o., IVF, IV antibiotics, as needed pain medications and antiemetics. Surgical consult. Hypertension Continue home medications when appropriate. Hypothyroidism Continue home medications when appropriate. GERD Daily Protonix. DVT PPX: SCD Code status: Full Discharge Plan: Home Plan to discharge in: 48 Hours - Advance Directives Does patient have a Living Will: No Does patient have a Durable POA for Healthcare: No - Code Status/Comfort Care Code Status Assessed: Yes (Full code) Critical Care: No Time Spent Managing Pts Care (In Minutes): 55 <Neftali Landeros - Last Filed: 03/13/22 06:15> - Plan Patient seen on rounds this AM, surgery planned for today no significant change since admission plan as noted above adjust abx, pt with cipro and pcn allergy <Иван Mccracken - Last Filed: 03/13/22 21:19>
[2022-03-13] MEDS ORDERED: ONDANSETRON 4 MG/2 ML VIAL IV PRN (07:46)
[2022-03-13] MEDS ORDERED: SODIUM CHLORIDE 0.9% 10ML INJ IV PRN (07:46)
[2022-03-13] MEDS: PANTOPRAZOLE 40 MG INJ IVP SCH (09:19)
[2022-03-13 09:33] VITALS: BMI 43.9
[2022-03-13] MEDS ORDERED: CLINDAMYCIN 600MG/D5W 50 ML IV ONE (11:15)
[2022-03-13] MEDS ORDERED: propofoL 200 MG/20 ML VIAL IV ONE (11:17)
[2022-03-13] MEDS ORDERED: FENTANYL CITR 100 MCG/2 ML ONE (11:17)
[2022-03-13] MEDS ORDERED: KETOROLAC 30 MG/ML INJ ONE (11:18)
[2022-03-13] MEDS ORDERED: LIDOCAINE 2% MPF 5 ML VIAL ONE (11:18)
[2022-03-13] MEDS ORDERED: ROCURONIUM 50 MG/5 ML VIAL IV ONE (11:18)
[2022-03-13] MEDS ORDERED: dexAMETHasone 10 MG/ML VIAL ONE (11:18)
[2022-03-13] MEDS: NA CHLORIDE 0.9% 1,000 ML IV SCH ×2 (11:29→13:39)
--- NOTE | 2022-03-13 12:26 | P.BOP ---
Preoperative diagnosis: incarcerated tender inguinal hernia, large bowel incarceration Postoperative diagnosis: same Primary procedure: Open repair of incarcerated inguinal hernia with mesh [employer] Officer: ESTER MEMBRENO (INSECTIC[employer] MIXER) Estimated blood loss: <10cc Specimen: none Findings: incarcerated large bowel viable Anesthesia: General Complications: None Implants: large mesh plug and sheet. Transferred to: Recovery Room Condition: Good
[2022-03-13] MEDS ORDERED: HYDROCODONE/APAP 5/325 MG TAB PO PRN (12:28)
[2022-03-13] MEDS ORDERED: NEOSTIGMINE 1 MG/ML -10 ML VIAL ONE (12:36)
[2022-03-13] MEDS ORDERED: GLYCOPYRROLATE 0.2 MG/ML SYR ONE (12:37)
[2022-03-13 13:16] VITALS: O2SAT 96
[2022-03-13] MEDS: METRONIDAZOLE 500mg IVPB 500 MG/100 ML BAG IV SCH ×2 (13:39→21:07)
--- NOTE | 2022-03-13 14:10 | RAD REPORT ---
EXAM DESCRIPTION: CT abdomen and pelvis with IV contrast CLINICAL HISTORY: 71 years Female ABDOMINAL PAIN TECHNIQUE: Axial CT imaging of the abdomen and pelvis was performed following the administration of intravenous contrast.. Oral contrast was not administered. Sagittal and coronal reconstructed image s were then performed. The CT study is performed according to ALARA (as low as reasonably achievabl e) or ALARA/IMAGE GENTLY, with automatic adjustment of mA and/or kV according to patient size. Performed on: 03/13/2022 of 4:26 AM. COMPARISON: No prior studies were available for comparison. FINDINGS: Lung bases: The lung bases are clear. There is minimal bibasilar atelectasis and/or fibros is. Liver: The liver measures approximately 18.3 cm in craniocaudal dimension. No focal hepatic abnormali ties are identified. Liver attenuation is within normal limits. The hepatic and portal veins are schultz nt. Spleen: The spleen is normal in size, configuration and attenuation. Gallbladder and bile duct: The gallbladder is surgically absent. There is no biliary ductal dilatat ion. Pancreas: The pancreas is grossly normal in size and configuration. Adrenal Glands: The adrenal glands are normal in size and configuration. Kidneys: The kidneys are normal in size and configuration. There is no evidence of hydronephrosis. Th ere is a nonobstructing calcification in the midpole of the left kidney. No definite solid or cystic renal mass lesions are identified. Stomach: There are remote postsurgical changes of the stomach consistent with prior gastric bypass. T here is a small hiatal hernia. Bowel: The bowel gas pattern is non specific and non obstructive. There is a large indirect right ing uinal hernia containing a loop of proximal ascending colon. There is also a small amount of ascites i n the hernia sac. There is no evidence of bowel wall thickening or free air. There is no evidence of proximal bowel obstruction. The region of the cecum is unremarkable. There is scattered air and fecal residue throughout the colon. The small bowel is normal in caliber and contour. A surgical anastomos is is present in the right midabdomen. Appendix: The appendix is normal. Free air: There is no evidence of free air. Free fluid: There is no evidence of free fluid. Vasculature: The aorta is normal in caliber and contour. The inferior vena cava is grossly unremarkab le. Lymphadenopathy: No pathologic lymphadenopathy is identified. Bladder: The bladder is partially distended and smooth in contour. Reproductive: The uterus is atrophic or surgically absent. Bones: No acute osseous abnormalities are identified. There are mild degenerative changes of the lumb ar spine. There is grade 1 anterolisthesis of L4 relative to L5. There are mild arthritic changes of the joints slightly greater on the right. Soft tissues: No acute soft tissue abnormalities are identified. IMPRESSION: 1. Large indirect right inguinal hernia containing a loop of proximal ascending colon and a small amount of free fluid. There is no evidence of proximal bowel obstruction, colonic wall th ickening or free air. 2. Remote gastric bypass. 3. Small hiatal hernia. 4. Remote cholecystectomy. 5. Nonobstructing calcification in the midpole of the left kidney. 6. Grade 1 anterolisthesis of L4 relative to L5. Electronically signed by: Lor Courtney DO 03/13/2022 5:16 AM DIET CONSULTANT Due to temporary technical issues with the PACS/Fluency reporting system, reports are being signed by the in house radiologists without review as a courtesy to insure prompt reporting. The interpreting radiologist is fully responsible for the content of the report.
[2022-03-13] MEDS ORDERED: RSI MEDICATION KIT IV ONE (15:40)
--- NOTE | 2022-03-13 16:36 | CON ---
Date of Consultation: 03/13/2022 Reason For Consultation: Abdominal pain, incarcerated right inguinal hernia. History Of Present Illness: This is a case of a 71-year-old patient who came few hours ago to the ER with sudden onset of a right inguinal pain. The patient states that she was just working in the [employer] yesterday, never had any mass in that region. She said that every now and then she has some pain, but she could not tell what it was. 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 The patient also has history of constipation. She does not remember the last colonoscopy, although she was advi sed the importance of it. Allergies: PENICILLIN. Medication: Losartan . Medical History: Hyperthyroidism, hypertension. Surgery: Gastric bypass, total abdominal hysterectomy. Social History: She does not smoke. She does not drink alcohol. Review of Systems: See history of present illness. Physical Examination: General: Patient is awake, alert. HEENT: Pupils are equal and reactive. Anicteric. Neck: Supple. Chest: Clear. Heart: S1, S2. Abdomen: Right lower quadrant tenderness. Right inguinal region with an incarcerated hernia present . Rectal/Pelvis: Deferred. Extremities: Good capillary refill. Laboratory Data: Blood work shows WBC count 10.6, hemoglobin of 14, potassium 3.9, creatinine is 0.8 2. CAT scan of the abdomen and pelvis shows a kidney stone on left side, small hiatal hernia, histor y of gastric bypass, large right inguinal hernia containing proximal ascending colon. Assessment: This is a 71-year-old patient who comes to us with acute abdominal pain on right lower s selam. She does not remember exactly what caused that although she was doing some yard work yesterday. She does not recall any pain like this before. The bowel is inside that intestines, so carlos boswell offered her a emergent repair of an incarcerated right inguinal hernia with mesh, possible resectio n, possible ostomy, possible laparotomy with benefits, alternatives, and risks include, but not limit ed to infection, bleeding, damage to adjacent structures, anesthesia complication, recurrence, HI, an d even . She also understands this may not relieve her symptoms. She might need more than one surgical intervention. She understands importance of colonoscopies. She understands we might be usi ng mesh for that area. Pros and cons of mesh use were discussed with the patient. BUCK Voice ID: [id number] Report ID: [id number]
[2022-03-13] MEDS ORDERED: CIPROFLOXACIN 400mg IV 400 MG/200 ML BAG IV SCH (21:00)
[2022-03-13] MEDS: HYDROMORPHONE HCL 0.5 MG/0.5 ML INJ IV PRN (22:53)
[2022-03-14] MEDS: METRONIDAZOLE 500mg IVPB 500 MG/100 ML BAG IV SCH (05:55)
[2022-03-14] MEDS: HYDROMORPHONE HCL 0.5 MG/0.5 ML INJ IV PRN (05:56)
[2022-03-14 06:13] LABS: Absolute Lymphocytes (CBC) 1.2 K/uL (0.7-4.9); Hematocrit 35.5 % (36.0-45.0); Lymphocytes % 9.1 % (15.3-44.8); MPV 7.3 fL (7.6-11.3); RBC Red Blood Cell Count 3.98 M/uL (3.86-4.86)
[2022-03-14 06:28] LABS: Potassium 3.9 mmol/L (3.5-5.1)
[2022-03-14] MEDS: PANTOPRAZOLE 40 MG INJ IVP SCH (09:33)
[2022-03-14] MEDS ORDERED: TRAMADOL HCL 50 MG TAB PO PRN (09:56)
[2022-03-14 12:13] VITALS: BP 115/47; TEMP 98.1
[2022-03-14] MEDS ORDERED: SMZ./TMP. 800/160 MG TABLET PO SCH (15:00)
[2022-03-14] MEDS ORDERED: metroNIDAZOLE 500 MG TABLET PO SCH (21:00)
[2022-03-15] MEDS ORDERED: PANTOPRAZOLE 40MG TABLET PO SCH (06:30)
== END 2022-03-14 14:30 | disposition home or self-care (01) | DRG 352 ==
LOC: ER 02:40 → ERHOLD 06:10 → 2ND 07:14
PROVIDERS: ADMIT Hospitalist; ATTEND Hospitalist
PROC: 0YU50JZ Supplement Right Inguinal Region with Synthetic Substitute, Open Approach (ICD-10-PCS; principal; 2022-03-13 12:45)
DX: K40.30 Unilateral inguinal hernia, with obstruction, without gangrene, not specified as recurrent (principal); I10 Essential (primary) hypertension; K21.9 Gastro-esophageal reflux disease without esophagitis; E03.9 Hypothyroidism, unspecified; Z88.0 Allergy status to penicillin; Z90.49 Acquired absence of other specified parts of digestive tract; Z98.84 Bariatric surgery status; Z79.890 Hormone replacement therapy; Z79.899 Other long term (current) drug therapy; Z90.710 Acquired absence of both cervix and uterus; Z20.822 Contact with and (suspected) exposure to COVID-19
CPT/HCPCS: 36415; 74177; 80048; 80053; 81003; 81015; 83690; 85025; 87811; 96361; 96365; 96375; 99285; C9113; J0744; J1100; J1170; J2001; J2405; J2704; J2710; J3010; J7030; J7040; Q9967

== ENCOUNTER 2024-12-23 15:33 | Emergency (ER) | payer OTHER ==
[2024-12-23] MEDS ORDERED: HYDROMORPHONE HCL 1 MG/ML INJ ONE ×2 (16:26→17:02)
[2024-12-23] MEDS ORDERED: ONDANSETRON 4 MG (ODT) TAB ONE (16:27)
--- NOTE | 2024-12-23 16:50 | RAD REPORT ---
EXAMINATION: XR RIGHT HIP CLINICAL INDICATION: . fall trauma;Pain TECHNIQUE: Multiple views of the right hip were obtained. COMPARISON: No prior exam. FINDINGS: Moderate osteoarthritis of the right hip is seen. No acute fracture or dislocation seen.
[2024-12-23] MEDS ORDERED: KETOROLAC 30 MG/ML INJ ONE (17:02)
--- NOTE | 2024-12-23 17:10 | ER ---
Nurse's Notes [facility] Name: Megan Wong Age: 74 yrs Sex: Female : 1950 Arrival Date: 12/23/2024 Time: 15:33 Bed 6 Private MD: Diagnosis: Right hip contusion, mechanical fall Presentation: 12/23 15:53 Chief complaint: Patient states: she stepped into an ant bed and landed onto her left ap3 hip. patient is complaining of left hip of which she rates "a bunch" on the pain scale. patient is able to move both lower extremities. Coronavirus screen: At this time, the client does not indicate any symptoms associated with coronavirus-19. Ebola Screen: No symptoms or risks identified at this time. Initial Sepsis Screen: Does the patient meet any 2 criteria? No. Patient's initial sepsis screen is negative. Does the patient have a suspected source of infection? No. Patient's initial sepsis screen is negative. Risk Assessment: Do you want to hurt yourself or someone else? Patient reports no desire to harm self or others. Onset of symptoms was December 23, 2024. 15:53 Method Of Arrival: Wheelchair ap3 15:53 Acuity: SID 3 ap3 Triage Assessment: 15:54 General: Appears uncomfortable, Behavior is calm, cooperative, appropriate for age. ap3 Pain: Complains of pain in right hip Pain radiates to right leg. Neuro: Level of Consciousness is awake, alert, obeys commands, Oriented to person, place, time, situation, Appropriate for age. Cardiovascular: Patient's skin is warm and dry. Respiratory: Airway is patent Respiratory effort is even, unlabored, Respiratory pattern is regular, symmetrical. Historical: - Allergies: 15:54 Cipro; ap3 15:54 PENICILLINS; ap3 - PMHx: 15:54 Hypertensive disorder; Hypothyroidism; ap3 - PSHx: 15:54 Gastric bipass; Total abdominal hysterectomy; ap3 - Immunization history:: Adult Immunizations up to date. - Infectious Disease History:: Denies. - Social history:: Smoking status: Patient denies any tobacco usage or history of. Screenin:56 Abuse screen: Denies threats or abuse. Nutritional screening: No deficits noted. ap3 Tuberculosis screening: No symptoms or risk factors identified. Assessment: 17:12 Reassessment: Patient appears in no apparent distress at this time. Patient and/or db family updated on plan of care and expected duration. Pain level reassessed. Patient is alert, oriented x 3, equal unlabored respirations, skin warm/dry/pink. General: Appears in no apparent distress. comfortable, Behavior is calm, cooperative. Neuro: Level of Consciousness is awake, alert, obeys commands, Oriented to person, place, time, situation. Vital Signs: 15:53 BP 135 / 85; Pulse 85; Resp 17; Temp 97.6; Pulse Ox 98% on R/A; Weight 99.79 kg; Height ap3 5 ft. 0 in. ; 17:05 BP 130 / 65; Pulse 81; Resp 18; Pulse Ox 95% ; db 15:53 Body Mass Index 42.97 (99.79 kg, 152.4 cm) ap3 [place] Coma Score: 15:55 Eye Response: spontaneous(4). Verbal Response: oriented(5). Motor Response: obeys ap3 commands(6). Total: 15. Trauma Score (Adult): 15:55 Eye Response: spontaneous(1); Verbal Response: oriented(1); Motor Response: obeys ap3 commands(2); Systolic BP: > 89 mm Hg(4); Respiratory Rate: 10 to 29 per min(4); James Score: 15; Trauma Score: 12 ED Course: 15:36 Patient arrived in ED. mr 15:36 Feliciano Ojeda MD is Attending Physician. sp3 15:54 Triage completed. ap3 15:55 Patient maintains SpO2 saturation greater than 95% on room air. ap3 15:55 Arm band placed on right wrist. ap3 16:20 Osbaldo Doyle, CLINT is Primary Nurse. bp 16:44 Hip Right 2 View In Process Unspecified. EDMS 17:12 Patient has correct armband on for positive identification. Bed in low position. Call db light in reach. Side rails up X 1. 17:59 No provider procedures requiring assistance completed. Patient did not have IV access ss during this emergency room visit. Administered Medications: 16:45 Drug: HYDROmorphone IM 1 mg IM once Route: IM; Site: right deltoid; bp 16:45 Drug: Ondansetron Oral Disintegrating Tablet Oral Disintegrating Tablet 4 mg PO once bp Route: PO; 17:08 Drug: Ketorolac IM 30 mg IM once Route: IM; Site: right ventrogluteal; db 17:10 Drug: HYDROmorphone IM 1 mg IM once Route: IM; Site: right ventrogluteal; db Outcome: 17:10 Discharge ordered by MD. bolton 17:59 Discharged to home ambulatory, 17:59 Condition: good 17:59 Discharge instructions given to patient, family, Instructed on discharge instructions, follow up and referral plans. medication usage, Demonstrated understanding of instructions, follow-up care, medications, Prescriptions given X 2, 17:59 Patient left the ED. ss Signatures: Dispatcher [employer] EDMS NegroDemetrice, Aman Reg mr Denise Ryder, RN RN ss Osbaldo Doyle RN RN Jessica Stein RN RN [email or web address] Feliciano Ojeda MD MD sp3 Cecilia Ledesma RN RN db Corrections: (The following items were deleted from the chart) 17:59 17:59 Patient did not have IV access during this emergency room visit. ss ss
--- NOTE | 2024-12-23 17:10 | EDPHYS ---
Physician Documentation [facility] Name: Megan Wong Age: 74 yrs Sex: Female : 1950 Arrival Date: 12/23/2024 Time: 15:33 Bed 6 Private MD: ED Physician Feliciano Ojeda HPI: 12/23 16:13 This 74 yrs old Female presents to ER via Wheelchair with complaints of Hip Pain, Fall sp3 Injury. 16:13 74-year-old female with history of hypertension presents with right hip pain after sp3 mechanical ground-level fall after stepping on [place]. No prior injury to the hip. Patient is not on any anticoagulants. No other injury reported. ROS otherwise negative.. Historical: - Allergies: 15:54 Cipro; ap3 15:54 PENICILLINS; ap3 - PMHx: 15:54 Hypertensive disorder; Hypothyroidism; ap3 - PSHx: 15:54 Gastric bipass; Total abdominal hysterectomy; ap3 - Immunization history:: Adult Immunizations up to date. - Infectious Disease History:: Denies. - Social history:: Smoking status: Patient denies any tobacco usage or history of. ROS: 16:14 Constitutional: Negative for fever, chills, and weight loss, Eyes: Negative for injury, sp3 pain, redness, and discharge, ENT: Negative for injury, pain, and discharge, Neck: Negative for injury, pain, and swelling, Cardiovascular: Negative for chest pain, palpitations, and edema, Respiratory: Negative for shortness of breath, cough, wheezing, and pleuritic chest pain, Abdomen/GI: Negative for abdominal pain, nausea, vomiting, diarrhea, and constipation, Back: Negative for injury and pain, Skin: Negative for injury, rash, and discoloration, Neuro: Negative for headache, weakness, numbness, tingling, and seizure, Psych: Negative for depression, anxiety, suicide ideation, homicidal ideation, and hallucinations, Allergy/Immunology: Negative for hives, rash, and allergies, Endocrine: Negative for neck swelling, polydipsia, polyuria, polyphagia, and marked weight changes, 16:14 All other systems are negative, Exam: 16:15 Constitutional: This is a well developed, well nourished patient who is awake, alert, sp3 and in no acute distress. Head/Face: Normocephalic, atraumatic. Chest/axilla: Normal chest wall appearance and motion. Nontender with no deformity. No lesions are appreciated. Cardiovascular: Regular rate and rhythm with a normal S1 and S2. No gallops, murmurs, or rubs. Normal PMI, no JVD. No pulse deficits. Respiratory: Lungs have equal breath sounds bilaterally, clear to auscultation and percussion. No rales, rhonchi or wheezes noted. No increased work of breathing, no retractions or nasal flaring. Abdomen/GI: Soft, non-tender, with normal bowel sounds. No distension or tympany. No guarding or rebound. No evidence of tenderness throughout. Back: No spinal tenderness. No costovertebral tenderness. Full range of motion. Skin: Warm, dry with normal turgor. Normal color with no rashes, no lesions, and no evidence of cellulitis. Neuro: Awake and alert, GCS 15, oriented to person, place, time, and situation. Cranial nerves II-XII grossly intact. Motor strength 5/5 in all extremities. Sensory grossly intact. Cerebellar exam normal. Normal gait. 16:15 Musculoskeletal/extremity: Pain to right hip on axial load and lateral pressure. Distal neurovascular exam is normal. Vital signs are normal.. Vital Signs: 15:53 BP 135 / 85; Pulse 85; Resp 17; Temp 97.6; Pulse Ox 98% on R/A; Weight 99.79 kg; Height ap3 5 ft. 0 in. ; 17:05 BP 130 / 65; Pulse 81; Resp 18; Pulse Ox 95% ; db 15:53 Body Mass Index 42.97 (99.79 kg, 152.4 cm) ap3 [place] Coma Score: 15:55 Eye Response: spontaneous(4). Verbal Response: oriented(5). Motor Response: obeys ap3 commands(6). Total: 15. Trauma Score (Adult): 15:55 Eye Response: spontaneous(1); Verbal Response: oriented(1); Motor Response: obeys ap3 commands(2); Systolic BP: > 89 mm Hg(4); Respiratory Rate: 10 to 29 per min(4); James Score: 15; Trauma Score: 12 MDM: 16:01 Medical Screening Exam initiated sp3 16:15 Data reviewed: vital signs, nurses notes, radiologic studies. ED course: 74-year-old sp3 female with right hip pain after mechanical fall. Differential diagnosis includes right hip contusion versus right hip fracture versus pelvic fracture. Will obtain x-ray and treat pain with Dilaudid 1 mg IM and ondansetron 4 mg ODT.. 17:09 ED course: X-ray negative. We will give 1 more round of pain medication as patient is sp3 still hurting though it is improved. Discharge home and follow-up with PCP and orthopedics as needed. Vital signs are normal.. 12/23 16:15 Order name: Hip Right 2 View; Complete Time: 16:54 EDMS Administered Medications: 16:45 Drug: HYDROmorphone IM 1 mg IM once Route: IM; Site: right deltoid; bp 16:45 Drug: Ondansetron Oral Disintegrating Tablet Oral Disintegrating Tablet 4 mg PO once bp Route: PO; 17:08 Drug: Ketorolac IM 30 mg IM once Route: IM; Site: right ventrogluteal; db 17:10 Drug: HYDROmorphone IM 1 mg IM once Route: IM; Site: right ventrogluteal; db Disposition Summary: 12/23/24 17:10 Discharge Ordered Notes: Location: Home sp3 Condition: Stable sp3 Diagnosis - Right hip contusion, mechanical fall sp3 Followup: sp3 - With: Private Physician - When: Upon discharge from the Emergency Department - Reason: Continuance of care Discharge Instructions: - Discharge Summary Sheet sp3 - Contusion sp3 - Hip Sprain sp3 Forms: - Medication Reconciliation Form sp3 - Antibiotic Education sp3 - Prescription Opioid Use sp3 - Patient Portal Instructions sp3 - Leadership Thank You Letter sp3 Prescriptions: - Diclofenac Sodium 75 mg Oral Tablet Sustained Release - take 1 tablet ORAL route 2 times per day; 30 tablet; Refills: 0, Product sp3 Selection Permitted - Tramadol 50 mg Oral Tablet - take 1 tablet ORAL route every 8 hours as needed; 12 tablet; Refills: 0, sp3 Product Selection Permitted Signatures: Dispatcher [employer] EDMS Osblado Doyle RN RN bp Jessica Coronado RN RN ap3 Feliciano Ojeda MD MD sp3 Cecilia Ledesma RN RN db Corrections: (The following items were deleted from the chart) 16:07 16:07 Hip Left 2 View+RAD.RAD.BRZ ordered. EDMS EDMS 16:14 16:12 Hip Right 2 View+RAD.RAD.BRZ ordered. EDMS EDMS
[2024-12-23 18:03] VITALS: TEMP 97.6
[2024-12-23 18:04] VITALS: BP 130/65; O2SAT 95
== END 2024-12-23 17:59 | disposition home or self-care (01) ==
LOC: ER 15:33
DX: S70.01XA Contusion of right hip, initial encounter (principal); W18.30XA Fall on same level, unspecified, initial encounter
CPT/HCPCS: 73502; 96372; 99284; J1885; Q0162; J1171 ×2